=== PATIENT | male | born 2000 | race Caucasian/White ===

== ENCOUNTER → 2024-01-04 06:27 | Day surgery (SDC) | payer OTHER, SELFPAY | LOC: GI 06:27 | PROVIDERS: ATTENDING PHYSICIAN Internal Medicine | DX: R10.84 Generalized abdominal pain (principal); K51.50 Left sided colitis without complications; R19.4 Change in bowel habit; K63.5 Polyp of colon; K51.40 Inflammatory polyps of colon without complications; K62.1 Rectal polyp; K62.89 Other specified diseases of anus and rectum | CPT/HCPCS: 45380; 88305; 88342 ==

== ENCOUNTER 2024-04-25 23:08 | Emergency (ER) | payer OTHER, SELFPAY ==
[2024-04-25 23:17] VITALS: BP 147/82
[2024-04-26 00:41] VITALS: BP 148/81
--- NOTE | 2024-04-26 01:03 | ED.GENMED ---
History of Present Illness
General
Chief Complaint: Musculo-Skeletal Complaint
Source: patient
Exam Limitations: none
Time Seen by Provider: 04/26/24 00:40
History of Present Illness
History of Present Illness:
23-year-old male who was snowboarding and fell. He states someone bumped him and he fell. Around 8 PM. Patient denies numbness or tingling. Reports pain right at his AC joint on the left. Denies head injury.
Past History
Past History
ED Past Medical History: None
ED Past Surgical History: None
Phy Exam
Physical Exam
Physical Exam:
CONSTITUTIONAL Vital signs reviewed, Patient alert and oriented to person, place and time. Well-appearing
HEAD atraumatic, normocephalic.
EYES eyelids normal to inspection, Extraocular muscles intact, Conjunctiva normal, Sclera normal.
NECK normal range of motion, Trachea midline, no jugular venous distention.
RESP no respiratory distress
BACK No obvious deformities
UPPER EXTREMITY gross motor strength normal, limited range of motion due to pain. Does have tenderness and deformity of the left AC joint. He has abnormal elevation of his left distal clavicle. Normal distal perfusion
LOWER EXTREMITY Gross range of motion normal, Gross motor strength normal
NEURO Speech normal, No focal motor deficits include, Jane coma scale 15, Memory normal, Cranial Nerves intact to screening exam.
SKIN Skin warm, dry, and normal in color.
PSYCHIATRIC Patient oriented to person place and time, Normal affect.
Course
Orders/Labs/Results
Orders:
Orders
04/25/24 23:33
Shoulder, Left, Trauma CR [CR Shoulder, Trauma - Left] Urgent
Comment:
Reason For Exam: sking accident left shoulder pain
Vital Signs
Initial and Last Documented VS:
Initial Vital Signs
Temp Pulse Resp BP Pulse Ox
99.5 F 88 20 147/82 98
04/25/24 23:17 04/25/24 23:17 04/25/24 23:17 04/25/24 23:17 04/25/24 23:17
Last Documented Vital Signs
Temp Pulse Resp BP Pulse Ox
99.5 F 92 15 148/81 97
04/25/24 23:17 04/26/24 00:41 04/26/24 00:41 04/26/24 00:41 04/26/24 00:41
MDM/Problems Addressed
MDM/Problems Addressed:
AC joint separation
*Radiology
Radiology exam reviewed: preliminary read by ED provider (No fracture, AC separation)
*Pulse Oximetry
Patient hypoxic: no
*Critical Care Note
Total Time (30-74mins, 75-104mins- exclusive of procedures): Not Applicable
Data Reviewed
Source: patient
Prescriptions/Medications Considered But Not Given:
Considered narcotic pain medication patient appears comfortable in sling
Patient Management
Escalation/DeEscalation of care consider admission/obs:
Patient has a sling. Normal perfusion. Recommended outpatient orthopedic follow-up for AC separation
ED Attending Note
-
Portions of this chart may have been created with voice recognition software.� Occasional wrong word or��sound alike� substitutions may have occurred due to the inherent limitations of voice recognition software.
Discharge Plan
Departure
Patient Disposition: Home (Routine Discharge)
Date of Disposition: 04/26/24
Time of Disposition: 01:04
Patient with high blood pressure during this ER visit?: Yes
Discharge Problem:
Acromioclavicular joint separation
Instructions: shoulder, How to Use a Shoulder Sling
Referrals:
Ady Galvez DO [Family Provider] -
Binh Guzman MD [Active] -
Activity Restrictions/Additional Instructions:
Please ice your injury and use ibuprofen every 6 hours for pain control. Please see orthopedics in the neck week for follow-up and reevaluation. Return immediately for numbness, tingling, worsening symptoms or any other concerns.
Interventions
Interventions:
*Risk Screen - Suicide Last Done: 04/25/24 23:17
*General Assessment Last Done: 04/25/24 23:17
*Neglect/Abuse Screening Last Done: 04/25/24 23:17
ED- Fall Risk Assessment Last Done: 04/25/24 23:17
*ED COVID-19 Vaccine History Last Done: 04/25/24 23:17
ED-Musculoskeletal Assessment Last Done: 04/26/24 00:36
Discharge Date and Time
Print Language: [id number]
== END 2024-04-26 01:15 | disposition home or self-care (01) ==
LOC: EMR 23:08
PROVIDERS: EMERGENCY PHYSICIAN Emergency Medicine; FAMILY PHYSICIAN Family Medicine
DX: S43.102A Unspecified dislocation of left acromioclavicular joint, initial encounter (principal); V00.311A Fall from snowboard, initial encounter; Y93.23 Activity, snow (alpine) (downhill) skiing, snowboarding, sledding, tobogganing and snow tubing
CPT/HCPCS: 99283; 73030